=== PATIENT | female | born 1980 | race Caucasian/White ===

== ENCOUNTER 2019-04-06 08:49 | Emergency (ER) | payer BC ==
[2019-04-06] MEDS ORDERED: MECLIZINE HCL 25 MG TABLET ONE ×2 (09:19→11:30)
[2019-04-06 09:20] LABS: BASOPHILS % (AUTO) 0.2 % (0.0-5.0); EOSINOPHILS % (AUTO) 0.5 % (0.0-8.0); HEMATOCRIT 51.1 % (36-48); LYMPHOCYTES % (AUTO) 4.3 % (21.0-51.0); MEAN CORPUSCULAR HEMOGLOBIN 29.1 pg (27.0-33.0); MEAN CORPUSCULAR HGB CONC 34.1 g/dL (32.0-36.0); MEAN CORPUSCULAR VOLUME 85.5 fL (79-99); MONOCYTES % (AUTO) 4.2 % (3.0-13.0); NEUTROPHILS % (AUTO) 90.4 % (40.0-77.0); PLATELET COUNT (AUTO) 351 K/uL (130-400); RED BLOOD CELL COUNT(AUTO) 5.98 MIL/uL (4.00-5.50); RED CELL DISTRIBUTION WIDTH 11.9 % (11.0-15.5); WHITE BLOOD COUNT (AUTO) 16.5 K/uL (4.8-10.8)
[2019-04-06] MEDS ORDERED: ONDANSETRON ODT 4 MG TAB ONE (09:20)
[2019-04-06] MEDS ORDERED: SODIUM CHLORIDE 0.9% 1000ML 2,000 ML IV ONE (09:20)
[2019-04-06 09:28] LABS: CREATININE 1.1 mg/dL (0.5-1.5); POTASSIUM 3.8 mmol/L (3.5-5.1)
[2019-04-06 09:33] LABS: ALBUMIN 4.6 g/dL (3.5-5.0); BILIRUBIN,TOTAL 1.3 mg/dL (0.2-1.0); TOTAL PROTEIN, SERUM 8.4 g/dL (6.0-8.3)
[2019-04-06] MEDS ORDERED: SODIUM CHLORIDE 0.9% 1000ML 1,000 ML IV ONE ×2 (11:13→16:17)
[2019-04-06] MEDS ORDERED: KETOROLAC TROMETHAMINE 30MG/ML ONE (11:27)
[2019-04-06] MEDS ORDERED: PROCHLORPERAZINE EDISYLATE 10 MG/2 ML VIAL ONE (11:27)
[2019-04-06 12:00] LABS: APPEARANCE,URINE Clear (CLEAR); BILIRUBIN,URINE Negative (NEGATIVE); COLOR,URINE Yellow (YELLOW); GLUCOSE, URINE (UA) Negative (NEGATIVE); KETONES,URINE Trace mg/dL (NEGATIVE); LEUKOCYTE ESTERASE ,URINE Small (NEGATIVE); NITRATE,URINE Negative (NEGATIVE); OCCULT BLOOD,URINE Trace (NEGATIVE); PROTEIN,URINE Negative (NEGATIVE); UROBILINOGEN,URINE 0.2 mg/dL (0.2-1.0)
[2019-04-06 12:11] LABS: BACTERIA,URINE Rare /HPF (None Seen); RBC,URINE 0-1 /HPF (0-1); SQUAMOUS EPITHELIAL CELL,UR Few /HPF (0-2)
[2019-04-06] MEDS ORDERED: ACETAMINOPHEN 325 MG TAB ONE (16:10)
== END 2019-04-06 18:41 | disposition home or self-care (01) ==
LOC: EDH 08:49
DX: K52.9 Noninfective gastroenteritis and colitis, unspecified (principal); E86.0 Dehydration; H81.10 Benign paroxysmal vertigo, unspecified ear; I10 Essential (primary) hypertension; G89.29 Other chronic pain; M54.9 Dorsalgia, unspecified; Z98.890 Other specified postprocedural states
CPT/HCPCS: 36415; 80053; 81001; 83630; 85025; 87046; 96361; 96374; 96375; 99284; J0780; J1885; J7030 ×3

== ENCOUNTER 2022-05-08 11:04 | Observation (INO) | payer BC ==
[~2022-05-08] VITALS: Ht 172.7 cm; Wt 82.6 kg
[2022-05-08] MEDS ORDERED: CETI10CA5 PO (12:06)
[2022-05-08] MEDS ORDERED: NIFE-40 PO (12:06)
[2022-05-08] MEDS ORDERED: ALPR0.25 PO (12:06)
[2022-05-08] MEDS ORDERED: LABE100T7 PO (12:06)
[2022-05-08 12:29] LABS: BASOPHILS % (AUTO) 0.7 % (0.0-5.0); EOSINOPHILS % (AUTO) 1.1 % (0.0-8.0); HEMATOCRIT 42.7 % (36-48); LYMPHOCYTES % (AUTO) 32.3 % (21.0-51.0); MEAN CORPUSCULAR HEMOGLOBIN 29.3 pg (27.0-33.0); MEAN CORPUSCULAR VOLUME 86.3 fL (79-99); MONOCYTES % (AUTO) 9.5 % (3.0-13.0); NEUTROPHILS % (AUTO) 56.1 % (40.0-77.0); PLATELET COUNT (AUTO) 346 K/uL (130-400); RED BLOOD CELL COUNT(AUTO) 4.95 MIL/uL (4.00-5.50); RED CELL DISTRIBUTION WIDTH 11.9 % (11.0-15.5); WHITE BLOOD COUNT (AUTO) 7.1 K/uL (4.8-10.8)
[2022-05-08] MEDS ORDERED: ALPRAZOLAM 0.25 MG TABLET PO SCH (12:30)
[2022-05-08 12:37] LABS: CREATININE 0.9 mg/dL (0.5-1.5); POTASSIUM 3.6 mmol/L (3.5-5.1)
[2022-05-08 12:41] LABS: ALBUMIN 3.9 g/dL (3.5-5.0); TOTAL PROTEIN, SERUM 7.1 g/dL (6.0-8.3)
[2022-05-08] MEDS ORDERED: IOHEXOL-350 50ML VIAL IV ONE (13:25)
[2022-05-08] MEDS: LABETALOL HCL 100 MG TABLET PO SCH ×2 (14:08→20:35)
[2022-05-08 14:58] VITALS: BP_SYST 146; BP_SYST 155; BP_DIAS 109
[2022-05-08 18:07] VITALS: BP 150/100
[2022-05-08] MEDS ORDERED: LABETALOL 20MG SYG IV ONE (18:09)
[2022-05-08] MEDS ORDERED: LABETALOL 20MG SYG IV SCH (18:10)
[2022-05-08 18:53] VITALS: BP 133/92
[2022-05-08] MEDS ORDERED: ALPRAZOLAM 0.25 MG TABLET PO PRN (19:30)
[2022-05-08] MEDS ORDERED: ACETAMINOPHEN 325 MG TAB ONE (19:31)
[2022-05-08] MEDS: FAMOTIDINE 20MG TAB PO SCH (20:35)
[2022-05-08 23:03] VITALS: BP 132/93
[2022-05-09 04:01] VITALS: BP 124/98
[2022-05-09 04:18] LABS: EOSINOPHILS % (AUTO) 1.9 % (0.0-8.0); HEMATOCRIT 42.3 % (36-48); LYMPHOCYTES % (AUTO) 35.4 % (21.0-51.0); MEAN CORPUSCULAR HEMOGLOBIN 29.4 pg (27.0-33.0); MEAN CORPUSCULAR HGB CONC 33.3 g/dL (32.0-36.0); MEAN CORPUSCULAR VOLUME 88.1 fL (79-99); MONOCYTES % (AUTO) 9.6 % (3.0-13.0); NEUTROPHILS % (AUTO) 51.8 % (40.0-77.0); PLATELET COUNT (AUTO) 310 K/uL (130-400); RED CELL DISTRIBUTION WIDTH 11.9 % (11.0-15.5); WHITE BLOOD COUNT (AUTO) 6.3 K/uL (4.8-10.8)
[2022-05-09 04:41] LABS: ALBUMIN 3.7 g/dL (3.5-5.0); POTASSIUM 3.5 mmol/L (3.5-5.1); TOTAL PROTEIN, SERUM 6.8 g/dL (6.0-8.3)
[2022-05-09] MEDS: ACETAMINOPHEN 325 MG TAB PO PRN ×2 (06:24→17:41)
[2022-05-09 08:26] VITALS: BP 138/96
[2022-05-09] MEDS ORDERED: NIFEDIPINE ER 30 MG TAB PO SCH (09:00)
[2022-05-09] MEDS: LABETALOL HCL 100 MG TABLET PO SCH ×3 (09:24→20:25)
[2022-05-09] MEDS: FAMOTIDINE 20MG TAB PO SCH ×2 (09:24→20:25)
[2022-05-09] MEDS: CETIRIZINE HCL 5 MG TABLET PO SCH (09:25)
[2022-05-09 11:42] VITALS: BP 129/97
[2022-05-09] MEDS: NIFEDIPINE ER 30 MG TAB PO SCH ×2 (14:36→20:25)
[2022-05-09 16:57] VITALS: BP 132/82
[2022-05-09 19:40] VITALS: BP 146/94
[2022-05-10] VITALS: BP 137/82
[2022-05-10 04:00] VITALS: BP 125/73
[2022-05-10 06:57] VITALS: BP 120/78
[2022-05-10] MEDS ORDERED: REGADENOSON 0.4 MG/5 ML PF SYG IVP SCH (07:00)
[2022-05-10] MEDS: FAMOTIDINE 20MG TAB PO SCH (07:25)
[2022-05-10] MEDS: NIFEDIPINE ER 30 MG TAB PO SCH ×2 (07:25→09:50)
[2022-05-10 09:45] VITALS: BP 127/113
[2022-05-10] MEDS: LABETALOL HCL 100 MG TABLET PO SCH ×2 (09:51→13:10)
[2022-05-10] MEDS: CETIRIZINE HCL 5 MG TABLET PO SCH (10:37)
[2022-05-10] MEDS: ACETAMINOPHEN 325 MG TAB PO PRN (10:39)
[2022-05-10 12:30] VITALS: BP 135/93
[2022-05-10 15:33] VITALS: BP 114/87
[2022-05-10] MEDS ORDERED: NIFE-40 PO (17:27)
== END 2022-05-10 18:18 | disposition home or self-care (01) ==
LOC: EDH 11:04 → INTOOBSV 11:05 → EDHIP 11:05 → 2DH 13:26
PROVIDERS: ADMIT Internal Medicine; ATTEND Internal Medicine
DX: R07.89 Other chest pain (principal); G43.909 Migraine, unspecified, not intractable, without status migrainosus; I10 Essential (primary) hypertension; F41.9 Anxiety disorder, unspecified; N20.0 Calculus of kidney; Z87.442 Personal history of urinary calculi; Z86.2 Personal history of diseases of the blood and blood-forming organs and certain disorders involving the immune mechanism; Z90.710 Acquired absence of both cervix and uterus; Z79.899 Other long term (current) drug therapy
CPT/HCPCS: 96374; 84443; 84484; 80061 ×2; 80053 ×2; 84703; 85025 ×2; 36415 ×3; 74178; 76770; 93306; 93356; 82672; 84402; 84403; 84244; 82088; 71045; 93005; 83835; 93017; 78452; 82570; Q9967; G0378 ×28; J2785; A9500 ×2